=== PATIENT | female | born 1965 ===

== ENCOUNTER 2018-12-12 07:38 | Day surgery (SDC) | payer OTHER, BC ==
[~2018-12-12 07:38] MED LIST: Lactated Ringers 1,000 ML IV SCH; Lidocaine 1%/Sod Bicarbonate in NS 8.4% 1 ML Syringe IDERM PRN; Sodium Chloride 0.9% 10 ML Syringe FLUSH PRN
[2018-12-12] MEDS ORDERED: Propofol 200 MG/20 ML SDV ONE ×3 (07:47→09:11)
[2018-12-12] MEDS ORDERED: Lidocaine 1% 6 ML ONE (07:47)
[2018-12-12] MEDS ORDERED: fentaNYL 100 MCG/2 ML SDV ONE (07:48)
--- NOTE | 2018-12-12 08:23 | PCM.PREANE ---
Preanesthetic Assessment - Anesthesia/Transfusion/Family Hx Anesthesia History: Prior Anesthesia Without Reaction Family History of Anesthesia Reaction: No - Review of Systems General: No Symptoms Pulmonary: Other (Smoker 1/8 pack per day. Occasional dry cough.) Cardiovascular: No Symptoms Gastrointestinal: No Symptoms Neurological: Other (Restless Legs, Fibromyalgia) Other: Reports: Diabetes (Type II Blood glucose 81 this morning. ), Depression, Anxiety - Physical Assessment NPO Status Date: 12/12/18 NPO Status Time: 04:00 O2 Sat by Pulse Oximetry: 98 Respiratory Rate: 16 Vital Signs: Last Vital Signs Temp 37.0 C 12/12/18 07:45 Pulse 85 12/12/18 07:45 Resp 16 12/12/18 07:45 BP 141/91 H 12/12/18 07:45 Pulse Ox 98 12/12/18 07:45 Height: 1.68 m Weight: 82.554 kg ASA Class: 2 Mental Status: Alert & Oriented x3 Airway Class: Mallampati = 1 Dentition: Reports: Partial Thyro-Mental Finger Breadths: 3 Mouth Opening Finger Breadths: 3 ROM/Head Extension: Full Lungs: Clear to Auscultation, Normal Respiratory Effort Cardiovascular: Regular Rate, Regular Rhythm - Lab Values: Laboratory Last Values POC Glucose 81 mg/dL (70-105) 12/12/18 08:16 - Allergies Allergies/Adverse Reactions: Allergies Allergy/AdvReac Type Severity Reaction Status Date / Time Sulfa (Sulfonamide Allergy Rash Verified 12/11/18 13:19 Antibiotics) - Acknowledgements Anesthesia Type Planned: MAC Pt an Appropriate Candidate for the Planned Anesthesia: Yes Alternatives and Risks of Anesthesia Discussed w Pt/Guardian: Yes Pt/Guardian Understands and Agrees with Anesthesia Plan: Yes PreAnesthesia Questionnaire HEENT History: Reports: Impaired Vision Other HEENT History: wears eyeglasses for reading, has denture Cardiovascular History: Reports: High Cholesterol, Hypertension, Other (See Below) Other Cardiovascular History: atypical chest pain Respiratory History: Reports: Bronchitis, Recurrent Gastrointestinal History: Reports: None Genitourinary History: Reports: Pyelonephritis, UTI, Recurrent [employer]IAN History: Reports: Musculoskeletal History: Reports: Back Pain, Chronic, Fibromyalgia Other Musculoskeletal History: artritis, back pain, knee pain, shoulder pain, fibromyalgia, RLS, left finger pain, lumbago Neurological History: Reports: Vertigo Psychiatric History: Reports: Anxiety, Depression Endocrine/Metabolic History: Reports: Diabetes, Type II Other Endocrine/Metabolic History: states was diabetic until lost 89#. Hematologic History: Reports: Anemia Other Hematologic History: in Immunologic History: Reports: None Oncologic (Cancer) History: Reports: None Dermatologic History: Reports: None - Infectious Disease History Infectious Disease History: Reports: Chicken Pox, Measles - Past Surgical History Head Surgeries/Procedures: Reports: None Cardiovascular Surgical History: Reports: None Respiratory Surgical History: Reports: None GI Surgical History: Reports: Appendectomy Female Surgical History: Reports: Hysterectomy Male Surgical History: Reports: None Endocrine Surgical History: Reports: None Neurological Surgical History: Reports: None Oncologic Surgical History: Reports: None Dermatological Surgical History: Reports: None - SUBSTANCE USE Smoking Status *Q: Current Every Day Smoker Recreational Drug Use History: No - HOME MEDS Home Medications: Home Meds Hydrochlorothiazide 25 mg PO DAILY 07/21/15 [History] Lisinopril 40 mg PO DAILY 07/21/15 [History] rOPINIRole [Requip] 3 mg PO BEDTIME 07/21/15 [History] Cyclobenzaprine [Flexeril] 5 mg PO BID PRN 05/31/16 [History] traMADol [Ultram] 50 mg PO BID PRN 05/31/16 [History] C-Naltrexone 1.5 mg PO DAILY 12/11/18 [History] Cinnamon Bark [Cinnamon] 500 mg PO DAILY 12/11/18 [History] Fexofenadine [Chelsey] 180 mg PO DAILY 12/11/18 [History] Fish Oil/Mead-3 Fatty Acids [Fish Oil 1,000 MG] 1 gm PO DAILY 12/11/18 [History ] Garlic 1,000 mg PO DAILY 12/11/18 [History] Magnesium 250 mg PO DAILY 12/11/18 [History] Potassium Chloride [Klor-Con] 20 meq PO DAILY 12/11/18 [History] buPROPion HCl [Wellbutrin Xl] 150 mg PO DAILY 12/11/18 [History] metFORMIN [Glucophage XR] 500 mg PO DAILY 12/11/18 [History] - CURRENT (IN HOUSE) MEDS Current Meds: Current Medications Lactated Ringer's (Ringers, Lactated) 1,000 mls @ 125 mls/hr IV ASDIRECTED CAMILLA Stop: 12/12/18 23:00 Last Admin: 12/12/18 08:05 Dose: 125 mls/hr Lidocaine/Sodium Bicarbonate (Buffered Lidocaine 1% In Ns 8.4%) 0.25 ml IDERM ONETIME PRN PRN Reason: Prior to IV Start Stop: 12/12/18 18:00 Last Admin: 12/12/18 08:05 Dose: 0.25 ml Sodium Chloride (Saline Flush) 10 ml FLUSH ASDIRECTED PRN PRN Reason: Keep Vein Open Stop: 12/12/18 18:00 Discontinued Medications Fentanyl (Sublimaze) Confirm Administered Dose 100 mcg .ROUTE .STK-MED ONE Stop: 12/12/18 07:49 Lidocaine HCl (Xylocaine-Mpf 1%) Confirm Administered Dose 6 mls @ as directed .ROUTE .STK-MED ONE Stop: 12/12/18 07:48 Propofol (Diprivan 20 Ml) Confirm Administered Dose 200 mg .ROUTE .STK-MED ONE Stop: 12/12/18 07:48
--- NOTE | 2018-12-12 09:40 | PCM48HPAN ---
Post Anesthesia Note - EVALUATION WITHIN 48HRS OF ANESTHETIC Vital Signs in Normal Range: Yes Patient Participated in Evaluation: Yes Respiratory Function Stable: Yes Airway Patent: Yes Cardiovascular Function Stable: Yes Hydration Status Stable: Yes Pain Control Satisfactory: Yes Nausea and Vomiting Control Satisfactory: Yes Mental Status Recovered: Yes Pulse Rate: 84 SaO2: 98 Resp Rate: 16 Temperature: 97.9 F Blood Pressure: 125/86
--- NOTE | 2018-12-12 09:45 | PCM.OPNOTE ---
- General Post-Op/Procedure Note Date of Surgery/Procedure: 12/12/18 Operative Procedure(s): colonoscopy with snare polypectomy Findings: 1) rectal polyp, 5 mm, semi-pendunculated, removed by hot snare polypectomy 2) rectal polyp, 3 mm, sessile, removed by cold forceps polypectomy Pre Op Diagnosis: screening colonoscopy Post-Op Diagnosis: Same Anesthesia Technique: MAC Primary Surgeon: Joesph Hwang Anesthesia Provider: Meli Arrieta Pathology: 1) rectal polyp #1 2) rectal polyp #2 Complications: None Condition: Good Free Text/Narrative:: Indications for surgery: The patient is a 53 yo female, here for initial screening colonoscopy. The patient was consented for colonoscopy with possible biopsy. Indications, risks, and benefits were discussed with the patient in detail. Description of procedure: After surgical consent was verified, the patient was brought to the main OR. A surgical time-out was performed to verify proper patient and proper procedure. Anesthesia performed monitored anesthesia care. A digital rectal exam was performed, which was normal. The colonoscope was inserted into the anus and advanced through the colon to the cecum. Location of the cecum was confirmed by presence of the appendiceal orifice, and by presence of the ileocecal valve. The scope was then withdrawn, with inspection of the colonic mucosa. There was a small 5 mm semi-pendunculated rectal polyp, removed by hot snare polypectomy. There was also a small 3 mm sessile rectal polyp removed by cold forceps polypectomy. Retroflexion was performed in the rectum, which was normal. The remainder of the colon and rectum was normal. Withdrawal time was 12 minutes, including time spent performing polypectomy. Blood loss was minimal. Prep was fair, with liquid stool especially in the right colon. The patient tolerated the procedure well, was brought out of anesthesia, and transported to the PACU in stable condition. Joesph Hwang M.D., F.A.C.S. General Surgery Pager: [phone]
[2018-12-12 11:56] VITALS: BP 139/94
== END 2018-12-12 10:55 | disposition home or self-care (01) ==
LOC: JD.SDS 07:38
PROVIDERS: ATTEND Student in an Organized Health Care Education/Training Program
DX: Z12.11 Encounter for screening for malignant neoplasm of colon (principal); K62.1 Rectal polyp; I10 Essential (primary) hypertension; E11.9 Type 2 diabetes mellitus without complications; F17.210 Nicotine dependence, cigarettes, uncomplicated; E87.6 Hypokalemia; G25.81 Restless legs syndrome; G89.29 Other chronic pain; M54.9 Dorsalgia, unspecified; M25.561 Pain in right knee; F41.8 Other specified anxiety disorders; M79.7 Fibromyalgia; Z79.84 Long term (current) use of oral hypoglycemic drugs
CPT/HCPCS: 45380; 45385; 82962; J2001; J2704; J3010; J7120; 00812

== ENCOUNTER 2024-12-15 00:39 | Emergency (ER) | payer OTHER ==
[2024-12-15] MEDS ORDERED: Sodium Chloride 0.9% 10 ML Syringe FLUSH PRN (00:58)
[2024-12-15 01:34] LABS: BASOPHILS PERCENT AUTO 0.3 % (0.0-1.0); EOSINOPHILS ABSOLUTE AUTO 0.3 K/mm3 (0.0-0.4); EOSINOPHILS PERCENT AUTO 2.3 % (0.0-6.0); HEMATOCRIT 40.9 % (37.0-47.0); HEMOGLOBIN 14.2 gm/dl (12.0-16.0); IMMATURE GRAN ABSOLUTE AUTO 0.04 K/mm3 (0.00-0.05); IMMATURE GRAN PERCENT AUTO 0.3 % (0.0-0.4); LYMPHOCYTES ABSOLUTE AUTO 1.9 K/mm3 (1.0-4.8); LYMPHOCYTES PERCENT AUTO 14.3 % (24.0-44.0); MEAN CORPUSCULAR HGB CONC 34.7 g/dl (32.0-36.0); MEAN CORPUSCULAR VOLUME 83.5 fl (83.0-99.0); MEAN PLATELET VOLUME 8.7 fl (9.4-12.3); MONOCYTES PERCENT AUTO 7.9 % (0.0-8.0); NEUTROPHILS ABSOLUTE AUTO 9.9 K/mm3 (1.8-7.7); NEUTROPHILS PERCENT AUTO 74.9 % (41.0-71.0); PLATELET COUNT,PLT 248 K/mm3 (150-400); WHITE BLOOD CELL COUNT,WBC 13.21 K/mm3 (3.9-11.3)
[2024-12-15] MEDS: Ondansetron 4 MG/2 ML SDV IVPUSH ONE (01:34)
[2024-12-15] MEDS: Sodium Chloride 0.9% 1,000 ML IV ONE (01:36)
[2024-12-15] MEDS: HYDROmorphone 0.5 MG/0.5 ML Syringe IVPUSH ONE (01:39)
[2024-12-15] MEDS: Piperacillin/Tazobactam 4.5 GM in Sodium Chloride 0.9% 100 ML IV ONE (01:43)
[2024-12-15] MEDS: VANCOmycin 1 GM in Sodium Chloride 0.9% 250 ML IV ONE (01:46)
[2024-12-15 01:57] LABS: PROTHROMBIN TIME 10.6 SECONDS (9.7-12.0)
[2024-12-15 01:58] LABS: LACTIC ACID 0.9 mmol/L (0.4-2.0)
[2024-12-15 02:01] LABS: A/G RATIO 0.9 (1-2); ALBUMIN 3.5 g/dl (3.4-5.0); ANION GAP 15.5 (5-15); BILIRUBIN TOTAL 0.6 mg/dL (0.2-1.0); BUN/CREATININE RATIO 13.3 (14-18); CREATININE 0.9 mg/dL (0.55-1.02); EST CRCL DRUG DOSING (CG) 63.01 mL/min; POTASSIUM,K 3.5 mEq/L (3.5-5.1); PROTEIN TOTAL,TP 7.6 g/dl (6.4-8.2)
[2024-12-15] MEDS: Iopamidol 612 MG/ML 100 ML Bottle IVPUSH ONE (02:44)
[2024-12-15] MEDS: Sodium Chloride 0.9% 100 ML IV SCH (02:45)
[2024-12-15] MEDS: Insulin Regular, Human 100 Units/ML 3 ML Vial IV ONE (03:37)
[2024-12-15] MEDS: Insulin Regular, Human 100 Units/ML 10 ML Vial SUBCUT ONE (03:38)
[2024-12-15] MEDS: Ketorolac 30 MG/ML SDV IVPUSH ONE (04:08)
[2024-12-15 05:17] VITALS: BP 133/81; PULSE 101
== END 2024-12-15 05:30 | disposition other institution (70) ==
LOC: JD.ED 00:39
DX: L03.211 Cellulitis of face (principal); L03.221 Cellulitis of neck; K04.7 Periapical abscess without sinus; I10 Essential (primary) hypertension; E11.9 Type 2 diabetes mellitus without complications; Z90.49 Acquired absence of other specified parts of digestive tract; Z90.710 Acquired absence of both cervix and uterus; Z79.899 Other long term (current) drug therapy; Z88.2 Allergy status to sulfonamides
CPT/HCPCS: 36415; 70486; 70491; 71045; 80053; 83605; 85025; 85610; 85730; 87040; 93005; 96365; 96366; 96368; 96375; 99285; J1815; J1885; J2405; J2543; J7030; Q9967